=== PATIENT | female | born 1970 | race American Indian/Alaskan Native ===

== ENCOUNTER 2018-01-24 13:29 | Emergency (ER) | payer MEDICAID ==
[2018-01-24 14:56] LABS: Basophils # (Auto) 0.1 K/mm3 (0.0-0.1); Basophils % (Auto) 0.5 % (0.0-1.8); Eosinophils # (Auto) 0.1 K/mm3 (0.0-0.4); Eosinophils % (Auto) 1.2 % (0.0-4.3); Lymphocytes # (Auto) 2.1 K/mm3 (1.2-5.4); Lymphocytes % (Auto) 20.4 % (13.4-35.0); Mean Corpuscular HGB Conc 31 % (30-34); Mean Corpuscular Volume 71 fl (79-97); Monocytes # (Auto) 0.8 K/mm3 (0.0-0.8); Monocytes % (Auto) 7.5 % (0.0-7.3); Red Blood Count 6.59 M/mm3 (3.65-5.03); Red Cell Distribution Width 16.6 % (13.2-15.2)
[2018-01-24 14:59] LABS: Hematocrit 46.4 % (30.3-42.9); Hemoglobin 14.2 gm/dl (10.1-14.3); Mean Corpuscular Hemoglobin 22 pg (28-32)
--- NOTE | 2018-01-24 15:24 | Emergency Department Report ---
ED Psych HPI - General Chief Complaint: Psych Stated Complaint: EVALUATION Time Seen by Provider: 01/24/18 14:25 Source: patient, EMS Mode of arrival: Ambulatory - History of Present Illness MD Complaint: altered mental status -: Sudden Associated Psychiatric Symptoms: racing thoughts, visual hallucinations Quality: constant Associated Symptoms: confusion Treatments Prior to Arrival: none - Related Data Home Medications Medication Instructions Recorded Confirmed Last Taken Hydrochlorothiazide [HCTZ] 25 mg PO QDAY 08/17/16 01/24/18 Unknown risperiDONE [RisperDAL] 0.5 mg PO QDAY 01/24/18 01/24/18 Unknown Allergies Allergy/AdvReac Type Severity Reaction Status Date / Time No Known Allergies Allergy Unverified 08/16/16 16:03 ED Review of Systems ROS: Stated complaint: EVALUATION Other details as noted in HPI Comment: All other systems reviewed and negative Constitutional: denies: chills, fever Eyes: denies: eye pain, eye discharge, vision change ENT: denies: ear pain, throat pain Respiratory: denies: cough, shortness of breath, wheezing Cardiovascular: denies: chest pain, palpitations Endocrine: no symptoms reported Gastrointestinal: denies: abdominal pain, nausea, diarrhea Genitourinary: denies: urgency, dysuria, discharge Musculoskeletal: denies: back pain, joint swelling, arthralgia Skin: denies: rash, lesions Neurological: denies: headache, weakness, paresthesias Psychiatric: denies: anxiety, depression Hematological/Lymphatic: denies: easy bleeding, easy bruising ED Past Medical Hx - Past Medical History Previous Medical History?: Yes Hx Hypertension: Yes Hx Psychiatric Treatment: Yes (depression) Additional medical history: unknown - Surgical History Past Surgical History?: No Additional Surgical History: unknown - Social History Smoking Status: Unknown if ever smoked - Medications Home Medications: Home Medications Medication Instructions Recorded Confirmed Last Taken Type Hydrochlorothiazide [HCTZ] 25 mg PO QDAY 08/17/16 01/24/18 Unknown History risperiDONE [RisperDAL] 0.5 mg PO QDAY 01/24/18 01/24/18 Unknown History ED Physical Exam - General Limitations: Altered Mental Status, Other General appearance: alert - Head Head exam: Present: atraumatic, normocephalic - Eye Eye exam: Present: normal appearance, PERRL, EOMI Pupils: Present: normal accommodation - ENT ENT exam: Present: normal exam, normal orophraynx - Neck Neck exam: Present: normal inspection - Respiratory Respiratory exam: Present: normal lung sounds bilaterally. Absent: respiratory distress - Cardiovascular Cardiovascular Exam: Present: regular rate, normal rhythm. Absent: systolic murmur, diastolic murmur, rubs, gallop - GI/Abdominal GI/Abdominal exam: Present: soft, normal bowel sounds - Extremities Exam Extremities exam: Present: normal inspection - Back Exam Back exam: Present: normal inspection - Neurological Exam Neurological exam: Present: alert, altered, CN II-XII intact - Psychiatric Psychiatric exam: Present: anxious, flat affect - Skin Skin exam: Present: warm, dry, intact, normal color. Absent: rash ED Course Vital Signs 01/24/18 01/24/18 01/24/18 13:40 13:58 16:03 Temperature 98.1 F Pulse Rate 85 75 Respiratory 16 16 18 Rate Blood Pressure 158/81 Blood Pressure 140/84 [Left] O2 Sat by Pulse 99 99 Oximetry - Reevaluation(s) Reevaluation #1: Medically cleared. Patient is waiting for psychiatric and mental evaluation. 1013 has been signed 01/24/18 20:12 ED Medical Decision Making - Lab Data Result diagrams: 01/24/18 14:43 01/24/18 14:43 - Radiology Data Radiology results: report reviewed CT head negative Critical care attestation.: If time is entered above; I have spent that time in minutes in the direct care of this critically ill patient, excluding procedure time. ED Disposition Clinical Impression: Altered mental status, Psychosis, Hallucinations Disposition: DC/TX-65 PSY HOSP/PSY UNIT Is pt being admited?: No Does the pt Need Aspirin: No Condition: Stable Time of Disposition: 20:12
[2018-01-24 15:26] LABS: BUN/Creatinine Ratio 12; Blood Urea Nitrogen 7 mg/dL (7-17); Calcium 9.6 mg/dL (8.4-10.2); Hemolysis Index 191
[2018-01-24 15:36] LABS: Platelet Count 283 K/mm3 (140-440)
--- NOTE | 2018-01-24 16:09 | Cat Scan Report ---
FINAL REPORT PROCEDURE: CT HEAD/BRAIN WO CON TECHNIQUE: Computerized tomography of the head was performed without contrast material. HISTORY: Altered mental status COMPARISON: No prior studies are available for comparison. FINDINGS: Brain: Brain density appears normal. No evidence of intracranial hemorrhage. No parenchymal hemorrhage, mass lesions or mass effect are seen. No abnormal extraxial fluid collects or masses are seen. Ventricles: Ventricles are normal size and are midline. Bone Windows: No evidence of skull fracture. 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 If further evaluation is clinically indicated CT scan of the cervical spine could be obtained. Paranasal sinuses: Clear Mastoid air cells: Clear IMPRESSION: Negative examination
[2018-01-24 21:04] LABS: Amphetamine Screen,Urine PRESUMPTIVE NEGATIVE; Benzodiazepines Screen,Urine PRESUMPTIVE NEGATIVE; Cannabinoid Screen,Urine PRESUMPTIVE NEGATIVE; Cocaine Screen,Urine PRESUMPTIVE NEGATIVE; Methadone Screen,Urine PRESUMPTIVE NEGATIVE; Opiate Screen,Urine PRESUMPTIVE NEGATIVE
[2018-01-24 21:11] LABS: Bilirubin,Urine NEG (Negative); Blood,Urine SM (Negative); Color,Urine Yellow (Yellow); Mucus,Urine FEW /HPF; Urobilinogen,Urine < 2.0 mg/dL (<2.0)
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
[2018-01-25] MEDS: RisperDAL PO SCH (22:03)
[2018-01-26] MEDS: RisperDAL PO SCH (23:15)
[2018-01-27 08:37] VITALS: BP 142/72
[2018-01-27] MEDS ORDERED: MOTRIN PO ONE (10:44)
--- NOTE | 2018-01-27 11:10 | Progress Note ---
Subjective - Reason for Consult Consult date: 01/27/18 Reason for consult: Psychiatry Follow-up - Chief Complaint Chief complaint: "I need to power down" 47 year old BF seen for psychiatric evaluation in the ER. She states her family became concerned about her and called EMS. She has a history of psychosis. Today the patient is calm and cooperative during the assessment. She stated that she was overwhelmed with some life stressors especially waiting on a approval for her medicaid insurance. She stated that the life stressors caused her to feel like something was wrong with her "mentally" prior ter admission to the hospital. She stated that her medicaid was approved and she is seen at [facility] for outpatient psy services. She stated that she plan to follow up with [facility] when discharged. She stated that her kids are safe and she look forward to seeing them when released. She denies SI/HI's and AVH's. She denies any side effects of her medications. Mental Status Exam - Vital signs Last Vital Signs Temp 98.0 F 01/27/18 08:35 Pulse 70 01/27/18 08:35 Resp 18 01/27/18 10:53 BP 142/72 01/27/18 08:35 Pulse Ox 100 01/27/18 08:35 - Exam Narrative exam: MSE: Appearance: calm, cooperative Behavior: regular eye contact Speech: regular rate and tone Mood: "okay" Affect: congruent to mood Thought Process: linear Thought Content: denies SI/HI's and AVH's Motor Activity: lying in bed Cognition: A/O x3 Insight: fair Judgment: fair Assessment and Plan mpression: Unspecified psychosis. She complains of generalized weakness. She denies suicidal or homicidal ideation. She did not display signs of psychosis at the time of interview. DDx R/O MDD psychotic features, R/O Bipolar DO Recommendation/Plan: Rescind 1013. Continue home medication of Risperdal 0.5 mg PO HS. Discussed possible metabolic side effects of Risperdal with patient. The patient can follow up with [facility] for outpatient psy services.
--- NOTE | 2018-01-27 18:01 | Emergency Department Report ---
Blank Doc - Documentation Documentation: Was brought to my attention by nursing staff that the last psych assessment from this morning recommended that the patient be discharged home with follow- up with the [facility] as an outpatient. Patient is no longer exhibiting any signs or symptoms of psychosis she is a and O 3 and feels as though she is stable and has a good follow-up plan as well as her discharge planning. Patient told me that one of her stressors as her family as she states that she is working on getting them in a different living situation than herself. Patient denies any homicidal suicidal ideations at this time. 1013 to be rescinded on 01/27/2018 at 6 PM.
== END 2018-01-27 18:49 | disposition home or self-care (01) ==
LOC: ED 13:29
DX: F29 Unspecified psychosis not due to a substance or known physiological condition (principal); I10 Essential (primary) hypertension; F32.9 Major depressive disorder, single episode, unspecified; Z79.899 Other long term (current) drug therapy
CPT/HCPCS: 36415; 70450; 80048; 80307; 81001; 85025; 99285; G0480; 80320

== ENCOUNTER 2018-06-16 13:31 | Emergency (ER) | payer OTHER, MEDICAID ==
[2018-06-16] MEDS ORDERED: TORADOL IM ONE (16:29)
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
[2018-06-16 18:33] VITALS: BP 140/82
--- NOTE | 2018-06-16 18:58 | XRay Report ---
FINAL REPORT EXAM: XR T SPINE CLINICAL INDICATIONS: Back Pain, Left Side Pain FINDINGS: AP lateral and swimmer's views of the thoracic spine were acquired and demonstrate no fracture or malalignment of the thoracic spine. The intervertebral disc space heights appear preserved. IMPRESSION: NO FRACTURE OR MALALIGNMENT OF THE THORACIC SPINE
--- NOTE | 2018-06-16 18:58 | XRay Report ---
FINAL REPORT EXAM: XR L SPINE CLINICAL INDICATIONS: Back Pain, Left Side Pain FINDINGS: AP and lateral views of the lumbar spine were acquired as well as coned down lateral view of L5-S1. Lateral images are somewhat limited by patient motion. These images demonstrate no fracture or malalignment of the lumbar spine. The intervertebral disc space heights appear preserved. IMPRESSION: NO FRACTURE OR MALALIGNMENT OF THE LUMBAR SPINE
== END 2018-06-16 18:32 | disposition home or self-care (01) ==
LOC: ED 13:31
DX: S39.012A Strain of muscle, fascia and tendon of lower back, initial encounter (principal); G44.209 Tension-type headache, unspecified, not intractable; I10 Essential (primary) hypertension; F32.9 Major depressive disorder, single episode, unspecified; D64.9 Anemia, unspecified; Z90.710 Acquired absence of both cervix and uterus; Z88.8 Allergy status to other drugs, medicaments and biological substances; V49.19XA Passenger injured in collision with other motor vehicles in nontraffic accident, initial encounter; Y93.89 Activity, other specified; Y99.8 Other external cause status; Y92.488 Other paved roadways as the place of occurrence of the external cause
CPT/HCPCS: 72070; 72100

== ENCOUNTER 2019-02-02 11:19 | Outpatient (CLI) | payer MEDICAID ==
--- NOTE | 2019-02-02 16:35 | Mammography Report ---
BILATERAL DIGITAL SCREENING MAMMOGRAM with CAD: 02/02/19 11:19:00 CLINICAL: Routine screening. COMPARISON:06/25/14 FINDINGS: There are scattered areas of fibroglandular density. No mass, architectural distortion or suspicious calcifications. IMPRESSION: No mammographic evidence of malignancy. BI-RADS CATEGORY: 2 -- Benign RECOMMENDATION: Routine mammographic screening in one year. COMMENT: Patient follow-up letters are generated by our [employer] application.
== END 2019-02-02 11:20 | disposition home or self-care (01) ==
LOC: SPVWC 11:19
PROVIDERS: ATTEND Hospitalist
DX: Z12.31 Encounter for screening mammogram for malignant neoplasm of breast (principal); I10 Essential (primary) hypertension; Z90.710 Acquired absence of both cervix and uterus
CPT/HCPCS: 77067

== ENCOUNTER 2022-01-23 21:09 | Emergency (ER) | payer MEDICAID ==
[2022-01-23] MEDS ORDERED: HALOPERIDOL LACTATE 5 MG/1 ML INJ IM ONE (21:16)
--- NOTE | 2022-01-23 22:24 | Emergency Department Report ---
ED Psych HPI - General Chief Complaint: Psych Stated Complaint: MH EVAL/OFF MEDS Time Seen by Provider: 01/23/22 21:16 Source: family, EMS Mode of arrival: Stretcher Limitations: Altered Mental Status - History of Present Illness Initial Comments: Pt came in via EMS due to agitation, pt has been off meds for days EMs was called by patient daughter , she has been agitated and manic, has history of schzophrenia , off meds for few days -: Gradual, days(s) Associated Psychiatric Symptoms: racing thoughts, auditory hallucinations History of same: Yes Quality: constant Associated Symptoms: denies other symptoms - Related Data Home Medications Medication Instructions Recorded Confirmed Last Taken hydroCHLOROthiazide [HCTZ] 25 mg PO QDAY 08/17/16 01/24/18 Unknown risperiDONE [RisperDAL] 0.5 mg PO QDAY 01/24/18 01/24/18 Unknown Previous Rx's Medication Instructions Recorded Last Taken Type Cyclobenzaprine HCl [Flexeril 5 MG 5 mg PO TID PRN #15 tab 06/16/18 Unknown Rx TAB] Ibuprofen [Motrin 800 MG tab] 800 mg PO Q8HR PRN #15 tablet 06/16/18 Unknown Rx Allergies Allergy/AdvReac Type Severity Reaction Status Date / Time doxycycline AdvReac drowsiness Verified 01/23/22 21:18 labetalol AdvReac Unknown Verified 01/23/22 21:18 lisinopril AdvReac Unknown Verified 01/23/22 21:18 ED Review of Systems ROS: Stated complaint: MH EVAL/OFF MEDS Other details as noted in HPI Comment: Unobtainable due to pts medical conditions ED Past Medical Hx - Past Medical History Previous Medical History?: Yes Hx Hypertension: Yes Hx Psychiatric Treatment: Yes (depression, BIPOLAR, SCHIZOPHRENIA) Additional medical history: anemia - Surgical History Past Surgical History?: Yes Additional Surgical History: hysterectomy - Social History Smoking Status: Former Smoker - Medications Home Medications: Home Medications Medication Instructions Recorded Confirmed Last Taken Type hydroCHLOROthiazide [HCTZ] 25 mg PO QDAY 08/17/16 01/24/18 Unknown History risperiDONE [RisperDAL] 0.5 mg PO QDAY 01/24/18 01/24/18 Unknown History Cyclobenzaprine HCl [Flexeril 5 MG 5 mg PO TID PRN #15 tab 06/16/18 Unknown Rx TAB] Ibuprofen [Motrin 800 MG tab] 800 mg PO Q8HR PRN #15 tablet 06/16/18 Unknown Rx ED Physical Exam - General Limitations: No Limitations General appearance: alert, anxious - Head Head exam: Present: atraumatic, normocephalic - Eye Eye exam: Present: normal appearance - ENT ENT exam: Present: mucous membranes moist - Neck Neck exam: Present: normal inspection - Respiratory Respiratory exam: Present: normal lung sounds bilaterally. Absent: respiratory distress - Cardiovascular Cardiovascular Exam: Present: regular rate, normal rhythm. Absent: systolic murmur, diastolic murmur, rubs, gallop - GI/Abdominal GI/Abdominal exam: Present: soft, normal bowel sounds - Extremities Exam Extremities exam: Present: normal inspection - Back Exam Back exam: Present: normal inspection - Neurological Exam Neurological exam: Present: alert, oriented X3 - Psychiatric Psychiatric exam: Present: agitated, manic - Expanded Psychiatric Exam Expanded Focused psych exam: Present: internal stimuli - Skin Skin exam: Present: warm, dry, intact, normal color. Absent: rash ED Course Vital Signs 01/23/22 01/23/22 01/23/22 21:13 21:15 21:16 Temperature Pulse Rate 70 Respiratory 18 Rate Blood Pressure 179/112 Blood Pressure 146/88 [Left] O2 Sat by Pulse 95 94 98 Oximetry 01/23/22 01/23/22 01/23/22 21:36 21:37 21:51 Temperature 98.4 F Pulse Rate 81 Respiratory 18 Rate Blood Pressure 179/112 Blood Pressure [Left] O2 Sat by Pulse 98 98 Oximetry 01/23/22 01/23/22 01/23/22 22:00 22:01 22:15 Temperature Pulse Rate Respiratory Rate Blood Pressure 130/51 130/51 Blood Pressure [Left] O2 Sat by Pulse 97 95 96 Oximetry 01/23/22 01/23/22 01/23/22 22:16 22:30 22:31 Temperature Pulse Rate Respiratory Rate Blood Pressure 130/51 130/51 135/42 Blood Pressure [Left] O2 Sat by Pulse 96 97 96 Oximetry 01/23/22 01/23/22 01/23/22 22:45 22:46 23:00 Temperature Pulse Rate Respiratory Rate Blood Pressure 135/42 135/42 135/42 Blood Pressure [Left] O2 Sat by Pulse 95 95 93 Oximetry 01/23/22 01/23/22 01/23/22 23:01 23:15 23:27 Temperature Pulse Rate Respiratory Rate Blood Pressure 139/77 139/77 158/71 Blood Pressure [Left] O2 Sat by Pulse 96 97 96 Oximetry 01/23/22 01/23/22 01/24/22 23:31 23:45 00:01 Temperature Pulse Rate Respiratory Rate Blood Pressure 158/71 158/71 158/71 Blood Pressure [Left] O2 Sat by Pulse 96 97 100 Oximetry 01/24/22 01/24/22 01/24/22 00:15 00:31 00:45 Temperature Pulse Rate Respiratory Rate Blood Pressure 158/71 158/71 158/71 Blood Pressure [Left] O2 Sat by Pulse 98 95 98 Oximetry 01/24/22 01/24/22 01/24/22 01:00 01:23 01:31 Temperature Pulse Rate Respiratory Rate Blood Pressure 158/71 158/71 148/68 Blood Pressure [Left] O2 Sat by Pulse 98 99 99 Oximetry 01/24/22 01/24/22 01/24/22 01:45 02:00 02:16 Temperature Pulse Rate Respiratory Rate Blood Pressure 148/68 158/71 148/68 Blood Pressure [Left] O2 Sat by Pulse 96 94 96 Oximetry 01/24/22 09:28 Temperature 98.2 F Pulse Rate 80 Respiratory 18 Rate Blood Pressure Blood Pressure 149/63 [Left] O2 Sat by Pulse 99 Oximetry ED Medical Decision Making - Lab Data Result diagrams: 01/23/22 23:50 01/23/22 23:50 Critical care attestation.: If time is entered above; I have spent that time in minutes in the direct care of this critically ill patient, excluding procedure time. ED Disposition Clinical Impression: Schizophrenia, Psychosis Disposition: ADMITTED INPATIENT Is pt being admited?: No Does the pt Need Aspirin: No Condition: Stable Referrals: ROSENDO MEDELLIN MD [Primary Care Provider] - 3-5 Days
[2022-01-23 22:28] LABS: Amphetamine Screen,Urine Negative; Benzodiazepines Screen,Urine Negative; Cannabinoid Screen,Urine Negative; Cocaine Screen,Urine Negative; Methadone Screen,Urine Negative; Opiate Screen,Urine Negative
[2022-01-23 22:44] LABS: Bilirubin,Urine Negative (Negative); Blood,Urine Negative (Negative); Color,Urine Yellow (Yellow)
[2022-01-23 22:45] LABS: Urobilinogen,Urine < 2.0 mg/dL (<2.0)
[2022-01-23 23:00] LABS: Mucus,Urine 1+ /HPF
[2022-01-24 00:05] LABS: Basophils % (Auto) 0.5 % (0.0-1.8); Eosinophils # (Auto) 0.1 K/mm3 (0.0-0.4); Eosinophils % (Auto) 1.4 % (0.0-4.3); Hemoglobin 11.8 gm/dl (10.1-14.3); Lymphocytes # (Auto) 1.2 K/mm3 (1.2-5.4); Lymphocytes % (Auto) 12.3 % (13.4-35.0); Mean Corpuscular HGB Conc 31 % (30-34); Monocytes # (Auto) 0.7 K/mm3 (0.0-0.8); Monocytes % (Auto) 7.3 % (0.0-7.3); Platelet Count 243 K/mm3 (140-440); Red Cell Distribution Width 17.4 % (13.2-15.2)
[2022-01-24 00:11] LABS: Mean Corpuscular Volume 68 fl (79-97)
[2022-01-24 00:23] LABS: Blood Urea Nitrogen 14 mg/dL (7-17); Hemolysis Index 2
[2022-01-24 00:32] LABS: BUN/Creatinine Ratio 20
[2022-01-24] MEDS ORDERED: POTASSIUM CHLORIDE ER 20 MEQ TAB PO ONE ×2 (00:36→11:41)
[2022-01-24 09:29] VITALS: BP 149/63
--- NOTE | 2022-01-24 11:21 | Consultation ---
History of Present Illness - Reason for Consult Consult date: 01/24/22 Reason for consult: Mental health evaluation - History of Present Psychiatric Illness The patient is a 51 year old female with history of schizophrenia who presents to the ED for evaluation. In my encounter with the patient, she is calm and oriented x2. The patient reports that her daughter called the doctor on her " they want to lock me away." The patient reports having constant quarrels with h er daughter and son whom she is currently living with; she becomes irritable when talking about her children. The patient reports noncompliant with psychotropic medications. She denies any current suicidal/homicidal ideation and denies hallucinations. Unable to reach next to kin @ [phone] and [phone] PAST PSYCHIATRIC HISTORY Diagnoses: Schizophrenia Suicide attempts or Self-harm behavior: Denies Prior psychiatric hospitalizations: Yes Substance Abuse history: Denies Previous psychiatric medications tried: Risperidone Outpatient treatment: Unknown PAST MEDICAL HISTORY: None reported Family Psychiatric History: None reported or documented SOCIAL HISTORY Marital Status:Single Living Arrangements: Lives with daughter and son Employment Status: Unemployed Access to guns/weapons: Denies Education: some college History of Abuse: none reported Legal History: none REVIEW OF SYSTEMS Constitutional: Negative for weight loss ENT: Negative for stridor Respiratory: Negative for cough or hemoptysis All other systems reviewed and are negative MENTAL STATUS EXAMINATION General Appearance and Behavior: Age appropriate, not wearing appropriate clothes, fair eye contact, Cooperation: Engaged Psychomotor Behavior: Psychomotor normal Mood: "ok" Affect and affective range: Incongruent with stated mood Thought Process: Circumstantial Thought Content: Reality oriented Speech: Normal tone and pace Suicidal Ideation: Denies Homicidal Ideation: Denies Hallucinations: Denies Delusions:None Insight and Judgment: Limited insight and judgment Memory: Normal Attention: divided attention impaired Orientation: Alert, oriented Assessment: (1) Schizophrenia 1013 Treatment Plan Continue home medications. Risperidone 0.5mg po daily Risks, benefits and alternatives of medications discussed with the patient, questions answered and consent obtained from patient. PSYCHOTHERAPY: Supportive psychotherapy provided MEDICAL: Per primary team DELIRIUM PRECAUTIONS: Please re-orient patient frequently, keep lights on during the day, and minimize benzodiazepines and opiates as these medications could worsen patient's confusion. 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 Will follow. Thanks Thank you for the consult. Case discussed with Dr. Conn who agrees with current disposition Medications and Allergies Medications and Allergies Allergies Allergy/AdvReac Type Severity Reaction Status Date / Time doxycycline AdvReac drowsiness Verified 01/23/22 21:18 labetalol AdvReac Unknown Verified 01/23/22 21:18 lisinopril AdvReac Unknown Verified 01/23/22 21:18 Home Medications Medication Instructions Recorded Confirmed Last Taken Type hydroCHLOROthiazide [HCTZ] 25 mg PO QDAY 08/17/16 01/24/18 Unknown History risperiDONE [RisperDAL] 0.5 mg PO QDAY 01/24/18 01/24/18 Unknown History Cyclobenzaprine HCl [Flexeril 5 MG 5 mg PO TID PRN #15 tab 06/16/18 Unknown Rx TAB] Ibuprofen [Motrin 800 MG tab] 800 mg PO Q8HR PRN #15 tablet 06/16/18 Unknown Rx Mental Status Exam - Vital signs Last Vital Signs Temp 98.2 F 01/24/22 09:28 Pulse 80 01/24/22 09:28 Resp 18 01/24/22 09:28 BP 149/63 01/24/22 09:28 Pulse Ox 99 01/24/22 09:28 Results Result Diagrams: 01/23/22 23:50 01/23/22 23:50 Abnormal lab results 01/23/22 01/23/22 01/23/22 Range/Units 23:50 23:50 23:50 RBC 5.60 H (3.65-5.03) M/mm3 MCV 68 L (79-97) fl MCH 21 L (28-32) pg RDW 17.4 H (13.2-15.2) % Lymph % (Auto) 12.3 L (13.4-35.0) % Seg Neutrophils % 78.5 H (40.0-70.0) % Potassium 2.7 L* (3.6-5.0) mmol/L Glucose 105 H (65-100) mg/dL Urine WBC (Auto) (0.0-6.0) /HPF U Epithel Cells (Auto) (0-13.0) /HPF Salicylates < 0.3 L (2.8-20.0) mg/dL Acetaminophen (10.0-30.0) ug/mL 01/23/22 01/23/22 Range/Units 23:50 Unknown RBC (3.65-5.03) M/mm3 MCV (79-97) fl MCH (28-32) pg RDW (13.2-15.2) % Lymph % (Auto) (13.4-35.0) % Seg Neutrophils % (40.0-70.0) % Potassium (3.6-5.0) mmol/L Glucose (65-100) mg/dL Urine WBC (Auto) 16.0 H (0.0-6.0) /HPF U Epithel Cells (Auto) 56.0 H (0-13.0) /HPF Salicylates (2.8-20.0) mg/dL Acetaminophen 5.0 L (10.0-30.0) ug/mL All other labs normal.
[2022-01-24] MEDS ORDERED: risperiDONE 1 MG TAB PO SCH (12:00)
--- NOTE | 2022-01-24 12:07 | Emergency Department Report ---
Blank Doc - Documentation Documentation: Patient is resting. Potassium has been reviewed. Oral potassium has been ord ered and we will repeat his potassium level to complete his medical clearance. Urine culture is pending although the patient has no symptoms of a urinary tract infection. Psychiatric evaluation has been completed and they are working on admission.
== END 2022-01-24 13:38 | disposition admitted as inpatient to this hospital (09) ==
LOC: ED 21:09
DX: F20.9 Schizophrenia, unspecified (principal); F29 Unspecified psychosis not due to a substance or known physiological condition; Z20.822 Contact with and (suspected) exposure to COVID-19; Z79.899 Other long term (current) drug therapy
CPT/HCPCS: 36415; 80048; 80307; 81001; 85025; 87086; 96372; 99285; J1630; U0003; 80320; G0480